=== PATIENT | male | born 1960 | race Caucasian/White ===

== ENCOUNTER 2021-12-31 09:00 | Inpatient (IN) ==
[2021-12-31] MEDS ORDERED: dexAMETHasone**PF** 10 MG/ML VIAL IV ONE (09:24)
[2021-12-31] MEDS ORDERED: ACETAMINOPHEN 1,000 MG/100 ML VIAL IV STA (09:24)
--- NOTE | 2021-12-31 09:34 | Emergency Department Note ---
Impression & Plan Spinal stenosis, lumbar region with neurogenic claudication, Lumbar disc herniation with radiculopathy, Urinary urgency ED Provider Note NAME: EKLSY DELCID AGE: 61 SEX: M ARRIVES VIA: Walk-In INFORMANT: Patient ED PROVIDER(S): Pb Cardenas MD CHIEF COMPLAINT: Sciatica, referred. PLAN: Disposition: Admit MEDICAL DECISION MAKING: The patient is a pleasant 61-year-old gentleman who presents emergency department referred by his orthopedic spine office for evaluation of worsening symptoms due to lumbar stenosis with pain and weakness of his right leg and his report of developing difficulty with urination over the past week. Patient r eports he does have a history of enlarged prostate but reports she has been on medications and has not had issues for years. He reports the pain become so severe that it is difficult to initiate his stream at times. He denies loss of bowel control. He does report weakness of the right leg and is able to walk with crutches but uncomfortably so in with difficulty. He did have an MRI performed at [facility] at the end of November that demonstrated prominent degenerative disc disease along with disc bulges and herniations resulting in spinal and foraminal stenosis along the nerve root. In particular there is moderate to severe right foraminal narrowing with moderate impingement of the ri ght L5 nerve root. He denies any fevers, chills, cough, congestion, GI symptoms. On arrival the patient is in no acute distress, afebrile stable vital signs. On exam the patient has 2+ patellar reflexes bilaterally. There is no clonus. He does have notable weakness with dorsal and plantar flexion of the foot. Positive right straight leg raise. WBC 12.8K, nonspecific. H/H and platelets within normal limits. Chemistry without metabolic acidosis. Electrolytes and LFTs unremarkable. UA without evidence of infection. COVID-19 RNA, PHYLLIS test was negative. Post void bladder scan by RN showed no urinary retention. Appreciate consultation with Dr. Rose, orthopedic spine surgery will admit the patient for further management. Patient and his agree with plan for admission Triage Nursing notes reviewed and agree them. Prior medical records reviewed Vital Signs: reviewed and remarkable for no significant abnormalities Differential diagnosis: Musculoskeletal, disc herniation, fracture, metastatic disease, cord compression, discitis, sciatica, cauda equina, infection, aortic disease, renal colic, gastrointestinal, as well as other pathologies. ER treatment provided: See below. Diagnostics interpreted by me: Cardiac Monitoring: An order for continuous cardiac monitoring was placed and demonstrated normal sinus rhythm, 76 bpm, no ectopy. Laboratory studies: See below Imaging studies: See below Consultation(s): Dr. Rose, orthopedic spine surgery. HPI: The patient is a pleasant 61-year-old gentleman who presents emergency department referred by his orthopedic spine office for evaluation of worsening symptoms due to lumbar stenosis with pain and weakness of his right leg and his report of developing difficulty with urination over the past week. Patient reports he does have a history of enlarged prostate but reports she has been on medications and has not had issues for years. He reports the pain become so s evere that it is difficult to initiate his stream at times. He denies loss of bowel control. He does report weakness of the right leg and is able to walk with crutches but uncomfortably so in with difficulty. He did have an MRI performed at [facility] at the end of November that demonstrated prominent degenerative disc disease along with disc bulges and herniations resulting in spinal and foraminal stenosis along the nerve root. In particular there is moderate to severe right foraminal narrowing with moderate impingement of the right L5 nerve root. He denies any fevers, chills, cough, congestion, GI symptoms. ROS: See above HPI for pertinent positives & negatives. A total of 10 systems reviewed and were otherwise negative. PAST MEDICAL HISTORY:See Below PAST SURGICAL HISTORY:See Below FAMILY HISTORY:See Below SOCIAL HISTORY:See Below HOME MEDICATIONS:See Below ALLERGIES:See Below VITALS:See Below PHYSICAL EXAMINATION: GENERAL: Awake, alert, uncomfortable-appearing, in no distress HENT: Normocephalic, atraumatic. Oropharynx unremarkable. EYES: Normal conjunctiva. Sclera non-icteric. NECK: Supple. No nuchal rigidity. FROM. No JVD. RESPIRATORY: Clear to auscultation. CARDIAC: Regular rate, normal rhythm. Extremities warm and well perfused. Pulses equal. ABDOMEN: Soft, non-distended. No tenderness to palpation. No rebound or guarding. No masses. RECTAL: Deferred. MUSCULOSKELETAL: Chest examination reveals no tenderness. The back is s ymmetrical on inspection without obvious abnormality. There is no CVA tenderness to palpation. No joint edema. 2+ patellar reflexes bilaterally. There is no clonus. He does have notable weakness with dorsal and plantar flexion of the foot. Positive right straight leg raise. LOWER EXTREMITIES: Calves are equal size bilaterally and non-tender. No edema. No discoloration. NEURO: Normal sensorium. No additional focal sensory or motor deficits noted. SKIN: No rash or jaundice noted. Pb Cardenas MD Past Med/Surg History Medical History Asthma BPH (benign prostatic hyperplasia) GERD (gastroesophageal reflux disease) HTN (hypertension) Nasal polyp Post-surgical hypothyroidism Surgical History History of appendectomy History of inguinal hernia History of sinus surgery x4 History of thyroidectomy History of tonsillectomy and adenoidectomy Family History Mother , 75 COPD (chronic obstructive pulmonary disease) Coronary heart disease Father Diabetes Heart disease Myocardial infarction Coronary heart disease Social History Smoking Status: Never smoker Hx Alcohol Use: Yes Alcohol Intake Frequency: Monthly or Less Hx Substance Use: No Preferred Language: Turkish marital status: Current Living Situation: Spouse current occupational status: employed current occupation: [employer] Feels Safe at Home: Yes Allergies Allergies Allergy/AdvReac Type Severity Reaction Status Date / Time doxycycline Allergy Severe Hives Verified 12/31/21 15:55 Penicillins Allergy Severe RASH Verified 12/31/21 15:55 Quinolones Allergy Severe SWELLING, Verified 12/31/21 15:55 RASH Home Meds Home Medications Medication Instructions Recorded Confirmed dupilumab 300 mg/2 mL subcutaneous 300 mg SUBCUT Q14D 12/31/21 12/31/21 pen injector (Dupixent) esomeprazole magnesium 20 mg 20 mg PO DAILY 12/31/21 12/31/21 capsule,delayed release (Nexium 24HR) finasteride 5 mg tablet 5 mg PO DAILY 12/31/21 12/31/21 gabapentin 300 mg capsule 300 mg PO QID 12/31/21 12/31/21 hydrochlorothiazide 25 mg tablet 25 mg PO DAILY 12/31/21 12/31/21 levothyroxine 175 mcg tablet 175 mcg PO DAILY 12/31/21 12/31/21 (Synthroid) mometasone 50 mcg/actuation nasal 2 spray INTRANASAL DAILY 12/31/21 12/31/21 spray mometasone-formoterol HFA 200 2 inh INHALATION BID 12/31/21 12/31/21 mcg-5 mcg/actuation aerosol inhaler (Dulera) Results & Data (ED) Vital Signs Vital Signs - 24 hr 12/31/21 09:07 12/31/21 11:50 Temperature 36.2 C L Temperature Source Temporal Artery Scan Pulse Rate 92 H Pulse Rhythm Regular Pulse Strength Normal Respiratory Rate 20 18 Respiratory Effort / Characteristics Non-Labored Spontaneous Respiratory Depth Normal Normal Respiratory Pattern Regular Blood Pressure 137/89 Blood Pressure Mean 105 Blood Pressure Position Sitting Pulse Oximetry 95 97 Oxygen Delivery Method Room Air Room Air Sepsis Recent Fever Within 48 Hours No Sepsis New/Unexplained Change in Mental Status No Sepsis Action Taken by Nursing No Action Required Laboratory Data Attestation: I reviewed the patient's lab results. Result diagrams: 12/31/21 09:35 12/31/21 09:35 Lab Results 12/31/21 12/31/21 12/31/21 Range/Units 09:35 09:35 09:35 WBC 12.86 H (4.8-10.8) K/uL RBC 5.15 (4.7-6.1) M/uL Hgb 15.1 (14.0-18.0) g/dL Hct 45.1 (42-52) % MCV 87.6 (80-100) fL MCH 29.3 (25-34) pg MCHC 33.5 (32-36) g/dL RDW Std Deviation 48.0 H (36.4-46.3) fL RDW Coeff of Jakob 14.9 H (11.5-14.5) % Plt Count 251 (130-400) K/uL MPV 11.2 H (7.4-10.4) fL Immature Gran % (Auto) 0.9 % Neut % (Auto) 81.7 % Lymph % (Auto) 11.2 % [place] % (Auto) 5.7 % Eos % (Auto) 0.3 % Baso % (Auto) 0.2 % Neut # (Auto) 10.52 H (1.4-6.5) K/uL Lymph # (Auto) 1.44 (1.2-3.4) K/uL [place] # (Auto) 0.73 H (0.11-0.59) K/uL Eos # (Auto) 0.04 (0-0.5) K/uL Baso # (Auto) 0.02 (0-0.2) K/uL Immature Gran # (Auto) 0.11 H (0.00-0.02) K/uL PT 9.5 (9.0-12.0) Seconds INR 0.9 (0.9-1.1) Sodium (136-145) mmol/L Potassium (3.5-5.1) mmol/L Chloride (98-107) mmol/L Carbon Dioxide (21-32) mmol/L Anion Gap (3-11) BUN (6-23) mg/dl Creatinine (0.6-1.4) mg/dl Est Cr Clr Drug Dosing ml/min Est GFR ( Amer) ml/min Est GFR (Non-Af Amer) ml/min BUN/Creatinine Ratio (10-20) Glucose (70-99(Fasting)) mg/dl Calcium (8.5-10.1) mg/dl Total Bilirubin (0.2-1.0) mg/dl AST (13-39) U/L ALT (7-52) U/L Alkaline Phosphatase (34-104) U/L Total Protein (6.0-8.3) gm/dl Albumin (3.4-5.0) gm/dl Globulin (2.5-4.0) gm/dl Albumin/Globulin Ratio (0.9-2) Urine Color Urine Appearance (Clear) Urine pH (4.5-7.5) Ur Specific [place] (1.000-1.030) Urine Protein (Negative) Urine Glucose (UA) (Negative) Urine Ketones (Negative) Urine Blood (Negative) Urine Nitrite (Negative) Urine Bilirubin (Negative) Urine Urobilinogen (Negative) Ur Leukocyte Esterase (Negative) SARS-CoV-2, RNA, NAAT (NEGATIVE) Blood Type O Positive Antibody Screen POSITIVE A 12/31/21 12/31/21 12/31/21 Range/Units 09:35 09:40 09:53 WBC (4.8-10.8) K/uL RBC (4.7-6.1) M/uL Hgb (14.0-18.0) g/dL Hct (42-52) % MCV (80-100) fL MCH (25-34) pg MCHC (32-36) g/dL RDW Std Deviation (36.4-46.3) fL RDW Coeff of Jakob (11.5-14.5) % Plt Count (130-400) K/uL MPV (7.4-10.4) fL Immature Gran % (Auto) % Neut % (Auto) % Lymph % (Auto) % [place] % (Auto) % Eos % (Auto) % Baso % (Auto) % Neut # (Auto) (1.4-6.5) K/uL Lymph # (Auto) (1.2-3.4) K/uL [place] # (Auto) (0.11-0.59) K/uL Eos # (Auto) (0-0.5) K/uL Baso # (Auto) (0-0.2) K/uL Immature Gran # (Auto) (0.00-0.02) K/uL PT (9.0-12.0) Seconds INR (0.9-1.1) Sodium 138 (136-145) mmol/L Potassium 3.7 (3.5-5.1) mmol/L Chloride 104 (98-107) mmol/L Carbon Dioxide 25 (21-32) mmol/L Anion Gap 9 (3-11) BUN 32 H (6-23) mg/dl Creatinine 0.80 (0.6-1.4) mg/dl Est Cr Clr Drug Dosing 93.0 ml/min Est GFR ( Amer) 113.3 ml/min Est GFR (Non-Af Amer) 97.8 ml/min BUN/Creatinine Ratio 40.0 H (10-20) Glucose 95 (70-99(Fasting)) mg/dl Calcium 9.5 (8.5-10.1) mg/dl Total Bilirubin 0.8 (0.2-1.0) mg/dl AST 17 (13-39) U/L ALT 34 (7-52) U/L Alkaline Phosphatase 73 (34-104) U/L Total Protein 6.5 (6.0-8.3) gm/dl Albumin 4.2 (3.4-5.0) gm/dl Globulin 2.3 L (2.5-4.0) gm/dl Albumin/Globulin Ratio 1.8 (0.9-2) Urine Color Yellow Urine Appearance Clear (Clear) Urine pH 6.5 (4.5-7.5) Ur Specific [place] 1.012 (1.000-1.030) Urine Protein Negative (Negative) Urine Glucose (UA) Negative (Negative) Urine Ketones Negative (Negative) Urine Blood Negative (Negative) Urine Nitrite Negative (Negative) Urine Bilirubin Negative (Negative) Urine Urobilinogen Negative (Negative) Ur Leukocyte Esterase Negative (Negative) SARS-CoV-2, RNA, NAAT NEGATIVE (NEGATIVE) Blood Type Antibody Screen Administered Medications Sodium Chloride (Nss 1000ml) 1,000 mls @ 125 mls/hr IV .Q8H [facility] Stop: 01/30/22 09:29 Last Admin: 12/31/21 10:04 Dose: 125 mls/hr Documented by: [id number] Discontinued Medications Dexamethasone Sodium Phosphate (DexamethasonePf 10 Mg/Ml Vial) 10 mg IV NOW ONE Stop: 12/31/21 09:25 Last Admin: 12/31/21 10:04 Dose: 10 mg Documented by: [id number] Acetaminophen (Ofirmev) 1,000 mg in 100 mls @ 400 mls/hr IV NOW STA Stop: 12/31/21 09:38 Last Infusion: 12/31/21 10:20 Dose: 0 mls/hr Documented by: [id number] Admin: 12/31/21 10:04 Dose: 400 mls/hr Documented by: [id number] Discharge Plan Visit Data Chief Complaint: Back Injury/Pain Stated Complaint: RT LEG PAIN, UNABLE TO VOID ED Provider: Pb Cardenas Discharge Problem: Spinal stenosis, lumbar region with neurogenic claudication, Lumbar disc herniation with radiculopathy, Urinary urgency Patient Disposition: Admitted As Inpatient Discharge Instructions Interventions: ED Discharge Assessment Last Done: 12/31/21 15:52
[2021-12-31 09:49] LABS: Basophils # (auto) 0.02 K/uL (0-0.2); Basophils % (auto) 0.2 %; Eosinophils # (auto) 0.04 K/uL (0-0.5); Eosinophils % (auto) 0.3 %; Hematocrit (blood only) 45.1 % (42-52); Hemoglobin 15.1 g/dL (14.0-18.0); Immature Granulocytes # (auto) 0.11 K/uL (0.00-0.02); Immature Granulocytes % (auto) 0.9 %; Lymphocytes # (auto) 1.44 K/uL (1.2-3.4); Lymphocytes % (auto) 11.2 %; Mean Corpuscular Hemoglobin 29.3 pg (25-34); Mean Corpuscular Hgb Conc 33.5 g/dL (32-36); Mean Corpuscular Volume 87.6 fL (80-100); Mean Platelet Volume 11.2 fL (7.4-10.4); Monocytes # (auto) 0.73 K/uL (0.11-0.59); Monocytes % (auto) 5.7 %; Neutrophils # (auto) 10.52 K/uL (1.4-6.5); Neutrophils % (auto) 81.7 %; Platelet Count 251 K/uL (130-400); RDW Coefficient of Variation 14.9 % (11.5-14.5); Red Blood Count 5.15 M/uL (4.7-6.1); White Blood Count 12.86 K/uL (4.8-10.8)
[2021-12-31 09:54] LABS: Appearance Urine Clear (Clear); Bilirubin Urine Negative (Negative); Blood Urine Negative (Negative); Color Urine Yellow; Glucose Urine UA Negative (Negative); Ketones Urine Negative (Negative); Leukocyte Esterase Urine Negative (Negative); Nitrite Urine Negative (Negative); Protein Urine Negative (Negative); Specific Gravity Urine 1.012 (1.000-1.030); Urobilinogen Urine Negative (Negative); pH Urine 6.5 (4.5-7.5)
[2021-12-31] MEDS: SODIUM CHLORIDE 0.9% 1000ML 1,000 ML IV SCH ×2 (10:04→16:57)
[2021-12-31 10:06] LABS: INR 0.9 (0.9-1.1); Prothrombin Time 9.5 Seconds (9.0-12.0)
[2021-12-31 10:11] LABS: Albumin Globulin Ratio 1.8 (0.9-2); Albumin Level 4.2 gm/dl (3.4-5.0); Bilirubin,Total 0.8 mg/dl (0.2-1.0); Calcium 9.5 mg/dl (8.5-10.1); Est GFR (African American) 113.3 ml/min; Est GFR (Non-African American) 97.8 ml/min; Globulin 2.3 gm/dl (2.5-4.0); Potassium 3.7 mmol/L (3.5-5.1); Total Protein 6.5 gm/dl (6.0-8.3)
--- NOTE | 2021-12-31 14:19 | Consultation ---
Date of Consultation December 31, 2021 Assessment & Plan (1) Spinal stenosis, lumbar region with neurogenic claudication: (2) HTN (hypertension): (3) Post-surgical hypothyroidism: (4) Asthma: (5) BPH (benign prostatic hyperplasia): (6) GERD (gastroesophageal reflux disease): This is a 61-year-old male who has significant past medical history of HTN, postsurgical hypothyroidism, asthma, BPH, GERD, nasal polyps who presents to ED secondary to worsening back, leg pain and difficulty with urination. Lumbar Spinal Stenosis with neurogenic claudication will be admitted to med/surg under orthopedic spine service Plan for lumbar procedure tomorrow, NPO after midnight pain management per orthopedics obtain ecg and cxr for pre op clearance meds, history, allergies reviewed with patient and at bedside HTN will hold HCTZ until re assessed in a.m./post operatively BP 128/88 currently Post surgical hypothyroidism continue synthyroid BPH continue finasteride Gerd continue nexium, controlled DVT ppx: SCD/TEDS, per primary PCP: Rufus Kirkland FULL CODE Dispo: med/surg Pt was seen and examined in collaboration with Dr. Patterson, please see addendum Thank you for this consultation. We will follow the patient with you during their hospital stay. You can reach a member of the [facility] Hospitalist Team 31/05 via hospitalist role on tiger text Supervising Physician Co-Signing Physician Notes Attending addendum: The patient was seen and examined in the emergency room in presence of the He has been complaining of back pain which has been getting worse with radiculopathy and involvement of his voiding since August of last year He denies any other symptoms and he has been otherwise active On examination Lying in bed comfortably Hemodynamically stable Chest-clear to auscultate bilaterally Heart-S1-S2, regular, no murmur appreciated Abdomen-benign Extremities-negative for any edema [employer]-alert, awake and oriented. Right lower extremity weakness with impaired sensation in the foot and lower leg His admission labs, EKG and imaging studies reviewed Has lumbar pain with radiculopathy Appreciate Ortho input and possible surgery tomorrow There is no contraindication for proposed surgery Agree with assessment and plan as outlined above by Alanis Patterson History of Present Illness Requesting Physician: Dr. Rose Reason for Consultation: Medical Management Attending Physician: Dr. Rose History of Present Illness This is a 61-year-old male who has significant past medical history of HTN, postsurgical hypothyroidism, asthma, BPH, GERD, nasal polyps who presents to ED secondary to worsening back, leg pain and difficulty with urination x 2-3 weeks. He states symptoms worsen over the past 2 to 3 weeks. Specifically with urination the pain becomes so intense that he is unable to relax his bladder and full urinate. He has been having difficulty walking. He is an established patient with Dr. Rose and was urged to come to ED for further evaluation and admission to orthopedic spine service. Of significance he did have a MRI at [facility] in [place] at end of November which demonstrated prominent degenerative disc disease along with disc bulges and herniations resulting in spinal and foraminal stenosis along the nerve root. In particular there is moderate to severe right foraminal narrowing and moderate impingement of the right L5 nerve root. Otherwise he has no acute concerns. He denies any recent illness. He denies any fever, chills, sweats, lightheadedness, dizziness, chest pain, shortness breath, cough, nausea, vomiting, abdominal pain, fecal incontinence, melena or hematochezia. At baseline he is able to ambulate 1 flight of stairs without getting chest pain or shortness of breath. He denies any prior history of CAD. He did have a cardiac cath approximately 7 years ago which he reports was unremarkable. Allergies Allergy/AdvReac Type Severity Reaction Status Date / Time doxycycline Allergy Severe Hives Verified 12/31/21 14:08 Penicillins Allergy Severe RASH Unverified 12/13/09 04:06 Quinolones Allergy Severe SWELLING, Unverified 12/13/09 04:06 RASH Home Medications Medication Instructions Recorded Confirmed Type dupilumab 300 mg/2 mL subcutaneous 300 mg SUBCUT Q14D 12/31/21 12/31/21 History pen injector (Dupixent) esomeprazole magnesium 20 mg 20 mg PO DAILY 12/31/21 12/31/21 History capsule,delayed release (Nexium 24HR) finasteride 5 mg tablet 5 mg PO DAILY 12/31/21 12/31/21 History gabapentin 300 mg capsule 300 mg PO QID 12/31/21 12/31/21 History hydrochlorothiazide 25 mg tablet 25 mg PO DAILY 12/31/21 12/31/21 History levothyroxine 175 mcg tablet 175 mcg PO DAILY 12/31/21 12/31/21 History (Synthroid) mometasone 50 mcg/actuation nasal 2 spray INTRANASAL DAILY 12/31/21 12/31/21 History spray mometasone-formoterol HFA 200 2 inh INHALATION DAILY 12/31/21 12/31/21 History mcg-5 mcg/actuation aerosol inhaler (Dulera) Patient History Medical History Asthma BPH (benign prostatic hyperplasia) GERD (gastroesophageal reflux disease) HTN (hypertension) Nasal polyp Post-surgical hypothyroidism Surgical History History of appendectomy History of inguinal hernia History of sinus surgery x4 History of thyroidectomy History of tonsillectomy and adenoidectomy Family History Mother , 75 COPD (chronic obstructive pulmonary disease) Coronary heart disease Father Diabetes Heart disease Myocardial infarction Coronary heart disease Social History (Updated 12/31/21 @ 14:20 by Alanis Malone PA-C) Smoking Status: Never smoker Hx Alcohol Use: Yes Alcohol Intake Frequency: Monthly or Less Hx Substance Use: No Preferred Language: Malay marital status: Current Living Situation: Spouse current occupational status: employed current occupation: [employer] Feels Safe at Home: Yes Review of Systems Review of Systems: All systems reviewed & are unremarkable except as noted in HPI & below Physical Exam Physical Exam: Constitutional: WD/WN, vitals as above, NAD, sitting up in bed, pleasant, conversing easily Head: Normocephalic, Atraumatic Eyes: PERRL, conjunctivae normal, anicteric sclerae ENMT: external ear and nose normal, oropharynx normal Neck: trachea midline, no thyromegaly normal visual inspection Respiratory: normal respiratory effort, lungs clear to auscultation, no wheeze, rales, rhonchi. Normal insp/exp effort, no accessory muscle use Cardiovascular: RRR, no murmur, no edema Vessels: no JVD or carotid bruit Chest: normal inspection of chest Abdomen: normal bowel sounds, soft, nontender, no hepatosplenomegaly Musculoskeletal: no cyanosis or clubbing, AROM x 4, no clonus, + R straight leg raise, 4/5 weakness to dorsal/plantar flexion of foot Skin: no rashes, warm and dry normal turgor Neurologic: PERRL, EOMI, accommodation nl, no face palsy, no dysarthria CN's II-XI intact bilaterally and moves all extremities Psychiatric: A+Ox3, euthymic affect Lymphatic: no cervical or axillary lymphadenopathy : deferred Results & Data ([facility]) Vital Signs (Past 12 Hours) Vital Signs Temp Pulse Pulse Resp BP BP Pulse Ox 12/31/21 14:00 18 94 12/31/21 12:57 82 16 128/88 93 12/31/21 11:50 18 97 12/31/21 09:07 36.2 C L 92 H 20 137/89 95 Laboratory Results Short CBC 12/31/21 Range/Units 09:35 WBC 12.86 H (4.8-10.8) K/uL Hgb 15.1 (14.0-18.0) g/dL Hct 45.1 (42-52) % Plt Count 251 (130-400) K/uL BMP 12/31/21 09:35 Sodium 138 Potassium 3.7 Chloride 104 Carbon Dioxide 25 BUN 32 H Creatinine 0.80 Glucose 95 Calcium 9.5 Liver Function 12/31/21 Range/Units 09:35 Total Bilirubin 0.8 (0.2-1.0) mg/dl AST 17 (13-39) U/L ALT 34 (7-52) U/L Alkaline Phosphatase 73 (34-104) U/L Albumin 4.2 (3.4-5.0) gm/dl Urine 12/31/21 Range/Units 09:40 Urine Color Yellow Urine Appearance Clear (Clear) Urine pH 6.5 (4.5-7.5) Ur Specific [place] 1.012 (1.000-1.030) Urine Protein Negative (Negative) Urine Glucose (UA) Negative (Negative) Medications Administered Medication List Sodium Chloride (Nss 1000ml) 1,000 mls @ 125 mls/hr IV .Q8H [facility] Stop: 01/30/22 09:29 Last Admin: 12/31/21 10:04 Dose: 125 mls/hr Documented by: [id number] Discontinued Medications Dexamethasone Sodium Phosphate (DexamethasonePf 10 Mg/Ml Vial) 10 mg IV NOW ONE Stop: 12/31/21 09:25 Last Admin: 12/31/21 10:04 Dose: 10 mg Documented by: [id number] Acetaminophen (Ofirmev) 1,000 mg in 100 mls @ 400 mls/hr IV NOW STA Stop: 12/31/21 09:38 Last Infusion: 12/31/21 10:20 Dose: 0 mls/hr Documented by: [id number] Admin: 12/31/21 10:04 Dose: 400 mls/hr Documented by: [id number]
--- NOTE | 2021-12-31 14:36 | Anesthesiology Consultation ---
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 History Surgery Operation Date: 01/01/22 07:00 Proposed Procedures p Lumbar decompression Fusion L4-L5 & L5-S1 - Antonio Rose DO Height/Weight Height: 5 ft 7 in Weight: 73.1 kg Allergies Allergy/AdvReac Type Severity Reaction Status Date / Time doxycycline Allergy Severe Hives Verified 12/31/21 14:08 Penicillins Allergy Severe RASH Unverified 12/13/09 04:06 Quinolones Allergy Severe SWELLING, Unverified 12/13/09 04:06 RASH Medications Home Medications Medication Instructions Recorded Confirmed Last Taken dupilumab 300 mg/2 mL subcutaneous 300 mg SUBCUT Q14D 12/31/21 12/31/21 Unknown pen injector (Dupixent) esomeprazole magnesium 20 mg 20 mg PO DAILY 12/31/21 12/31/21 Unknown capsule,delayed release (Nexium 24HR) finasteride 5 mg tablet 5 mg PO DAILY 12/31/21 12/31/21 Unknown gabapentin 300 mg capsule 300 mg PO QID 12/31/21 12/31/21 Unknown hydrochlorothiazide 25 mg tablet 25 mg PO DAILY 12/31/21 12/31/21 Unknown levothyroxine 175 mcg tablet 175 mcg PO DAILY 12/31/21 12/31/21 Unknown (Synthroid) mometasone 50 mcg/actuation nasal 2 spray INTRANASAL DAILY 12/31/21 12/31/21 Unknown spray mometasone-formoterol HFA 200 2 inh INHALATION DAILY 12/31/21 12/31/21 Unknown mcg-5 mcg/actuation aerosol inhaler (Dulera) Active Medications Generic Name Dose Route Start Last Admin Trade Name Freq PRN Reason Stop Dose Admin Sodium Chloride 1,000 mls @ 125 mls/hr 12/31/21 09:30 12/31/21 10:04 Nss 1000ml IV 01/30/22 09:29 125 mls/hr .Q8H AVERY Administration Past Medical History Medical History Asthma BPH (benign prostatic hyperplasia) GERD (gastroesophageal reflux disease) HTN (hypertension) Nasal polyp Post-surgical hypothyroidism Past Family History Family History Mother , 75 COPD (chronic obstructive pulmonary disease) Coronary heart disease Father Diabetes Heart disease Myocardial infarction Coronary heart disease Past Surgical History Surgical History History of appendectomy History of inguinal hernia History of sinus surgery x4 History of thyroidectomy History of tonsillectomy and adenoidectomy Social History Smoking Status: Never smoker Hx Alcohol Use: Yes Hx Substance Use: No Physical Exam Vital Signs Last Vital Signs Temp 97.2 F L 12/31/21 09:07 Pulse 82 12/31/21 12:57 Resp 18 12/31/21 14:00 BP 128/88 12/31/21 12:57 Pulse Ox 94 12/31/21 14:00 Testing Laboratory Results 12/31/21 09:35 12/31/21 09:35 PT 9.5 Seconds (9.0-12.0) 12/31/21 09:35 INR 0.9 (0.9-1.1) 12/31/21 09:35 Urine Color Yellow 12/31/21 09:40 Urine Appearance Clear (Clear) 12/31/21 09:40 Urine pH 6.5 (4.5-7.5) 12/31/21 09:40 Ur Specific [place] 1.012 (1.000-1.030) 12/31/21 09:40 Urine Protein Negative (Negative) 12/31/21 09:40 Urine Glucose (UA) Negative (Negative) 12/31/21 09:40 Urine Ketones Negative (Negative) 12/31/21 09:40 Urine Nitrite Negative (Negative) 12/31/21 09:40 Ur Leukocyte Esterase Negative (Negative) 12/31/21 09:40 Blood Type O Positive 12/31/21 09:35 Antibody Screen POSITIVE A 12/31/21 09:35 Electrocardiogram Date: 12/31/21 Normal sinus rhythm, rate 75 bpm Possible Left atrial enlargement Possible Lateral infarct , age undetermined Abnormal ECG No previous ECGs available
--- NOTE | 2021-12-31 14:46 | History & Physical Report ---
Date of Service December 31, 2021 Assessment & Plan (1) Lumbar disc herniation with radiculopathy: Plan: Assessment lumbar disc herniation L4-L5 with spondylolisthesis L5-S1 and bilateral neuroforaminal stenosis. Plan at length discussion today with the patient and his reviewing his MRI findings and clinical presentation. In order to adequately address his neural compression he would require a lumbar decompression and fusion L4-L5 L5-S1. This allowed us to address the instability and spinal listhesis L5-S1 safely addressed the neuroforaminal stenosis as well as the massive disc herniation at L4-L5. Risk benefits pros cons of turns were outlined in detail. This time the patient will be made n.p.o. after midnight obtain medical evaluation and plan for surgery as soon as possible in light of his progressive strength deficit. History of Present Illness Chief Complaint: Right leg pain and weakness Primary Care Provider: Rufus Kirkland MD This is a 61-year-old male that presents with severe right leg radiculopathy. He states symptoms have been present for several months with a significant decline over the past few weeks. He describes pain in the right buttock posterior thigh extending into the dorsum of his foot. He is now relegated to using crutches to ambulate as he is unable to weight-bear secondary to weakness. He has tried epidural injections without relief. Left lower extremities relatively asymptomatic. He denies any specific trauma fall or event. Allergies Allergy/AdvReac Type Severity Reaction Status Date / Time doxycycline Allergy Severe Hives Verified 12/31/21 14:08 Penicillins Allergy Severe RASH Unverified 12/13/09 04:06 Quinolones Allergy Severe SWELLING, Unverified 12/13/09 04:06 RASH Home Medications Medication Instructions Recorded Confirmed Type dupilumab 300 mg/2 mL subcutaneous 300 mg SUBCUT Q14D 12/31/21 12/31/21 History pen injector (DupixVisibleGains) esomeprazole magnesium 20 mg 20 mg PO DAILY 12/31/21 12/31/21 History capsule,delayed release (Nexium 24HR) finasteride 5 mg tablet 5 mg PO DAILY 12/31/21 12/31/21 History gabapentin 300 mg capsule 300 mg PO QID 12/31/21 12/31/21 History hydrochlorothiazide 25 mg tablet 25 mg PO DAILY 12/31/21 12/31/21 History levothyroxine 175 mcg tablet 175 mcg PO DAILY 12/31/21 12/31/21 History (Synthroid) mometasone 50 mcg/actuation nasal 2 spray INTRANASAL DAILY 12/31/21 12/31/21 History spray mometasone-formoterol HFA 200 2 inh INHALATION DAILY 12/31/21 12/31/21 History mcg-5 mcg/actuation aerosol inhaler (Dulera) Past Med/Surg History Medical History Asthma BPH (benign prostatic hyperplasia) GERD (gastroesophageal reflux disease) HTN (hypertension) Nasal polyp Post-surgical hypothyroidism Surgical History History of appendectomy History of inguinal hernia History of sinus surgery x4 History of thyroidectomy History of tonsillectomy and adenoidectomy Family History Mother , 75 COPD (chronic obstructive pulmonary disease) Coronary heart disease Father Diabetes Heart disease Myocardial infarction Coronary heart disease Social History (Updated 12/31/21 @ 14:20 by Alanis Malone PA-C) Smoking Status: Never smoker Hx Alcohol Use: Yes Alcohol Intake Frequency: Monthly or Less Hx Substance Use: No Preferred Language: Mongolian marital status: Current Living Situation: Spouse current occupational status: employed current occupation: [employer] Feels Safe at Home: Yes Physical Exam Physical Exam: On exam he is in obvious distress. He exhibits positive tension signs with straight leg raising on the right. He has a 3+/5 right dorsiflexion extensor pollicis longus as well as a 4-45 right plantar flexion. Is a 5 or 5 in the left. There is marked deficits to cold and light touch to the right lower extremity compared to left. Results & Data ([facility]) Vital Signs (Past 12 Hours) Vital Signs Temp Pulse Pulse Resp BP BP Pulse Ox 12/31/21 14:00 18 94 12/31/21 12:57 82 16 128/88 93 12/31/21 11:50 18 97 12/31/21 09:07 36.2 C L 92 H 20 137/89 95 Code Status & VTE Plan VTE Prophylaxis Plan VTE Prophylaxis will be ordered: Yes
--- NOTE | 2021-12-31 16:20 | XRay Report ---
TWO VIEW CHEST CLINICAL HISTORY: Preoperative examination. Reported history of asthma. FINDINGS: PA and lateral chest radiographs are compared to study dated 12/11/2013. The cardiomediastina l silhouette is unremarkable. There is bibasilar scarring/atelectasis. The lungs and pleural spaces a re otherwise clear. There is no pneumothorax. The skeletal structures appear osteopenic. Degenerative changes noted throughout the thoracic spine. The bony thorax appears intact. IMPRESSION: No active disease in the chest. ACT 112: Negative or not required by law. Electronically signed by: Juliocesar Arthur M.D. 12/31/2021 4:19 PM
[2021-12-31] MEDS ORDERED: METOCLOPRAMIDE HCL INJ 5 MG/ML 2 ML VIAL IV PRN (16:22)
[2021-12-31] MEDS ORDERED: MAGNESIUM HYDROXIDE SUSP 30 ML UDC PO PRN (16:22)
[2021-12-31] MEDS ORDERED: hydrOXYzine HCl 25 MG TAB PO PRN (16:22)
[2021-12-31] MEDS ORDERED: ONDANSETRON INJ 2 MG/ML 2 ML VIAL IV PRN (16:22)
[2021-12-31] MEDS ORDERED: NALOXONE HCL 0.4 MG/1 ML VIAL/CARP IV PRN (16:22)
[2021-12-31] MEDS ORDERED: LORazepam 0.5 MG TAB PO PRN (16:22)
[2021-12-31] MEDS ORDERED: PROMETHAZINE HCL 12.5 MG in SODIUM CHLORIDE 0.9% 50 ML IV PRN (16:22)
[2021-12-31] MEDS ORDERED: ONDANSETRON 4 MG OD TAB PO PRN (16:22)
[2021-12-31] MEDS ORDERED: LORazepam 2 MG/1 ML VIAL IV PRN (16:22)
[2021-12-31] MEDS ORDERED: ACETAMINOPHEN 1,000 MG/100 ML VIAL IV PRN (16:22)
[2021-12-31] MEDS ORDERED: ACETAMINOPHEN 500 MG TAB PO PRN (16:22)
[2021-12-31] MEDS: LACTATED RINGER'S 1,000 ML IV SCH (16:57)
--- NOTE | 2021-12-31 17:41 | Electrocardiogram Report ---
Test Reason : Blood Pressure : / mmHG Vent. Rate : 075 BPM Atrial Rate : 075 BPM P-R Int : 180 ms QRS Dur : 098 ms QT Int : 386 ms P-R-T Axes : 039 -08 035 degrees QTc Int : 431 ms Normal sinus rhythm Possible Left atrial enlargement Possible Lateral infarct , age undetermined Abnormal ECG No previous ECGs available Confirmed by Gabriel Delgadillo ([id number]) on 12/31/2021 5:40:40 PM Referred By: Antonio Rose Confirmed By:Lopez Delgadillo
[2021-12-31] MEDS: GABAPENTIN 300 MG CAP PO SCH ×2 (18:20→21:19)
[2021-12-31] MEDS: oxyCODONE HCL IR 5 MG TAB (IMMEDIATE RELEASE) PO PRN (21:18)
[2022-01-01] MEDS: traMADol HCL 50 MG TABLET PO PRN ×2 (01:27→07:38)
[2022-01-01] MEDS: LACTATED RINGER'S 1,000 ML IV SCH ×3 (01:57→18:33)
[2022-01-01] MEDS ORDERED: CLINDAMYCIN 600 MG/54 ML BAG IV SCH (06:00)
[2022-01-01] MEDS ORDERED: CLINDAMYCIN 600 MG in DEXTROSE 5% 50 ML IV SCH (06:00)
[2022-01-01] MEDS: LEVOTHYROXINE SODIUM 175 MCG TABLET PO SCH (06:10)
[2022-01-01] MEDS: oxyCODONE HCL IR 5 MG TAB (IMMEDIATE RELEASE) PO PRN (06:10)
[2022-01-01] MEDS: GABAPENTIN 300 MG CAP PO SCH ×4 (07:38→19:52)
[2022-01-01] MEDS: FLUTICASONE/VILANTEROL 200/25MCG 14 PUFFS/INHALER INH SCH (07:38)
[2022-01-01] MEDS: FINASTERIDE 5 MG TAB PO SCH (07:38)
[2022-01-01] MEDS: FLUTICASONE PROPIONATE NA SPR 16 GM BTL NAE SCH (07:38)
[2022-01-01] MEDS: PANTOprazole 40 MG TAB PO SCH (07:38)
--- NOTE | 2022-01-01 07:43 | History & Physical Bridge Note ---
Date of Service January 01, 2022 History & Physical Bridge Note I have examined the patient, reviewed the History & Physical and in the interval since the performance of the History & Physical I have noted the following changes of clinical significance: Patient continues to demonstrate significant deficit of 3+/5 right dorsiflexion extensor pollicis longus with a 4-/5 plantar flexion. Is been progressive and avoid permanent neurologic damage and recommending emergent decompression fusion L4-5 L5-S1.
[2022-01-01] MEDS ORDERED: EPINEPHrine INJ 1 MG/ML AMP ONE ×2 (07:58→07:59)
[2022-01-01] MEDS ORDERED: BUPIVACAINE 0.5 % 5 MG/1 ML MPF 30ML VIAL ONE (07:59)
[2022-01-01] MEDS ORDERED: fentaNYL citrate 100 MCG/2 ML VIAL ONE (08:08)
[2022-01-01] MEDS ORDERED: MIDAZOLAM HCL 1 MG/ML 2ML VIAL ONE (08:08)
[2022-01-01] MEDS ORDERED: LABETALOL HCL IV 5 MG/ML 20ML IV PRN (08:19)
[2022-01-01] MEDS ORDERED: ONDANSETRON INJ 2 MG/ML 2 ML VIAL IV PRN ×2 (08:19→11:32)
[2022-01-01] MEDS ORDERED: PHENYLEPHRINE 100MCG/ML 5ML SYR IV PRN (08:19)
[2022-01-01] MEDS ORDERED: ATROPINE SULFATE 0.1 MG/ML 10ML SYR IV PRN (08:19)
[2022-01-01] MEDS ORDERED: ePHEDrine sulfate 50 MG/ML AMP IV PRN (08:19)
[2022-01-01] MEDS ORDERED: HYDROmorphone INJ 1 MG/ML SYRINGE IV PRN ×2 (08:19→11:32)
[2022-01-01] MEDS ORDERED: fentaNYL citrate 100 MCG/2 ML VIAL IV PRN (08:19)
[2022-01-01] MEDS ORDERED: ONDANSETRON INJ 2 MG/ML 2 ML VIAL ONE (08:39)
[2022-01-01] MEDS ORDERED: PROPOFOL IV EMULSION 10 MG/ML 20 ML VIAL IV ONE ×2 (08:39→09:21)
[2022-01-01] MEDS ORDERED: LIDOCAINE 2% 2 ML VIAL/AMP(20MG/ML) INFIL ONE (08:39)
[2022-01-01] MEDS ORDERED: DEXAMETHASONE SOD INJ 4 MG/ML VIAL ONE (08:39)
[2022-01-01] MEDS ORDERED: HYDROmorphone INJ 2 MG/ML SYR/VIAL ONE (08:40)
[2022-01-01] MEDS ORDERED: FLOSEAL HEMOSTATIC MATRIX 10ML TOP ONE (09:05)
[2022-01-01] MEDS ORDERED: NEOSTIGMINE METHYLSULFATE 1 MG/ML 10ML VIAL ONE (09:21)
[2022-01-01] MEDS ORDERED: GLYCOPYRROLATE 0.2 MG/ML VIAL ONE (09:21)
--- NOTE | 2022-01-01 10:20 | Operative Report ---
Post Operative Report Pre & Post Diagnosis Operation Date: 01/01/22 07:00 Pre-Op Diagnosis: Lumbar disc herniation L4-5 with spondylolisthesis L5-S1 Post-Op Diagnosis: Same I identified the patient and participated in the time-out.: Yes Procedure Operation Date: 01/01/22 07:00 Actual Procedures #1 lumbar decompression with bilateral medial facetectomies and foraminotomies L3-L4, L4-5 and L5-S1. #2 posterior spinal fusion L4-L5 L5-S1. #3 placement posterior instrumentation L4-L5 L5-S1. #4 interbody fusion L4-L5 L5-S1. #5 placement of titanium cage 12 x 26 mm at L4-L5 and 12 x 26 mm at L5-S1. #6 placement locally harvested morselized autograft in the posterior lateral gutters. #7 placement I factor combined with V toss in the interbody space and posterior lateral gutters. Surgeon Antonio Rose, Marketing Recruiter Katty Allen Estimated Blood Loss 200 Findings Consistent with Post-Op Diagnosis Specimens None Indications This is a 61-year-old male that presents with significant decline in status over the past several days. He does have a known spondylolisthesis and disc herniation L4-5 on the right and has been managed for several months but over the past few days at the onset of significant weakness and inability to ambulate and continued severe radiculopathy involving the right lower extremity. Subsequently he is here for emergent decompression fusion to hopefully halt the progression of nerve damage and strength deficit. Description of Procedure Patient was met with identified informed consent obtained. Patient was then taken to the operative suite underwent a patient placed in a prone position the [place] table top To frame. All bony prominences well-padded eyes inspected to ensure no external pressure placed upon the. This point lumbar spine was prepped and draped in a sterile fashion. Sharp dissection with the assistance of Bovie cautery was performed down to and exposing the lamina and transverse processes of L4-L5 and sacral ala bilaterally. Obvious bilateral pars defect was noted at L5 bilaterally. A complete laminectomy of L5 L4 partial laminectomy of L3 was performed with a medial facetectomies and foraminotomies bilaterally addressing severe stenosis particular along the right lateral recess at 4 5. The severe neuroforaminal disease L5 1 bilaterally. There is evidence of an acute disc herniation at L5-S1 on the right as well. After complete decompression pedicle screws were placed in L4-L5 and S1 levels bilaterally with assistance of fluoroscopy appropriate sized heath placed. By way of a transforaminal approach on right a complete discectomy of L5-S1 was performed endplates curetted to subcortical any bone and a 12 x 26 mm titanium cage filled I factor tapped in position. Then proceeded L4-L5 and again by way of a transforaminal portion right complete discectomy performed endplates curetted to subcortically bone and a 12 x 26 mm titanium cage filled I factor tapped in position. The rods were then compressed locked in 5 position bilaterally. Transverse processes of L4-5 and the sacral ala burred to subcortically bone. I factor combined with V toss and locally harvested morselized autograft was placed in the posterior gutters. 15 round KG drain inserted. The incision was then closed with 1 Vicryl the fascia 2-0 Vicryl subcutaneously and 4 Monocryl for final skin closure. Steri-Strip Steri-Strips placed. Patient will continue PACU stable condition. Lastly Katty Allen was present at the entire procedure on the patient positioning complex portion of the surgery and fascial closure. I attest to the content of the Intraoperative Record and any orders documented therein. Any exceptions are noted below.
[2022-01-01] MEDS ORDERED: oxyCODONE HCL IR 5 MG TAB (IMMEDIATE RELEASE) PO PRN (11:32)
[2022-01-01] MEDS ORDERED: PROMETHAZINE HCL 12.5 MG in SODIUM CHLORIDE 0.9% 50 ML IV PRN (11:32)
[2022-01-01] MEDS ORDERED: LORazepam 0.5 MG TAB PO PRN (11:32)
[2022-01-01] MEDS ORDERED: HYDROmorphone INJ 0.5 MG/0.5 ML SYR IV PRN (11:32)
[2022-01-01] MEDS ORDERED: ACETAMINOPHEN 1,000 MG/100 ML VIAL IV PRN (11:32)
[2022-01-01] MEDS ORDERED: ALUMINUM/MAGNESIUM SUSP 30 ML UDC PO PRN (11:32)
[2022-01-01] MEDS ORDERED: MAGNESIUM HYDROXIDE SUSP 30 ML UDC PO PRN (11:32)
[2022-01-01] MEDS ORDERED: ACETAMINOPHEN 500 MG TAB PO PRN (11:32)
[2022-01-01] MEDS ORDERED: SOD PHOSPHATE/SOD BIPHOSPHATE ENEMA 132 ML BTL PR PRN (11:32)
[2022-01-01] MEDS ORDERED: bisacodyL 10 MG SUPP PR PRN (11:32)
[2022-01-01] MEDS ORDERED: DO NOT ADMINISTER PNEUMOCOCCAL VACCINE PRN (11:32)
[2022-01-01] MEDS ORDERED: diphenhydrAMINE Capsule 25 MG CAP PO PRN (11:32)
[2022-01-01] MEDS ORDERED: METOCLOPRAMIDE HCL INJ 5 MG/ML 2 ML VIAL IV PRN (11:32)
[2022-01-01] MEDS ORDERED: hydrOXYzine HCl 25 MG TAB PO PRN (11:32)
[2022-01-01] MEDS ORDERED: DO NOT ADMINISTER FLU VACCINE PRN (11:32)
[2022-01-01] MEDS ORDERED: FAMOTIDINE 20 MG TAB PO PRN (11:32)
[2022-01-01] MEDS ORDERED: ONDANSETRON 4 MG OD TAB PO PRN (11:32)
[2022-01-01] MEDS ORDERED: LORazepam 2 MG/1 ML VIAL IV PRN (11:32)
[2022-01-01] MEDS ORDERED: NALOXONE HCL 0.4 MG/1 ML VIAL/CARP IV PRN (11:32)
--- NOTE | 2022-01-01 11:40 | Fluoroscopy Report ---
INTRAOPERATIVE RADIOGRAPHS CLINICAL HISTORY: Lumbar spinal fusion. Fluoroscopy time: 23 seconds. FINDINGS: 2 spot fluoroscopic views of the lumbar spine are presented. There has been discectomy at L 4-L5 and L5-S1 with laminectomy and posterior fusion at L4-S1. Interpedicular screws are in place. Th e orthopedic hardware appears intact. IMPRESSION: Intraoperative images from L4-S1 spinal fusion as above. Electronically signed by: Juliocesar Arthur M.D. 01/01/2022 11:39 AM
--- NOTE | 2022-01-01 11:46 | Anesthesiology Progress Note ---
Date of Service January 01, 2022 Anesthesia Post Procedure Vital Signs Vital Signs: Temp Pulse Pulse Pulse Resp BP BP 01/01/22 11:36 36.4 C L 63 16 117/75 01/01/22 11:20 77 16 125/78 01/01/22 11:10 36.1 C L 72 16 117/75 01/01/22 11:00 70 11 L 133/87 01/01/22 10:50 73 12 128/78 01/01/22 10:40 77 12 146/84 H 01/01/22 10:31 36 C L 86 12 144/89 H 01/01/22 08:00 36.6 C 81 18 01/01/22 07:38 36.5 C 65 16 01/01/22 00:06 36.6 C 73 18 12/31/21 21:19 135/76 12/31/21 20:12 36.5 C 92 H 18 169/100 H 12/31/21 19:10 81 17 130/91 12/31/21 19:09 83 18 130/91 12/31/21 15:52 70 18 124/80 12/31/21 14:00 18 12/31/21 12:57 82 16 128/88 12/31/21 11:50 18 BP Pulse Ox 01/01/22 11:36 95 01/01/22 11:20 96 01/01/22 11:10 99 01/01/22 11:00 96 01/01/22 10:50 98 01/01/22 10:40 97 01/01/22 10:31 98 01/01/22 08:00 143/92 H 96 01/01/22 07:38 144/89 H 94 01/01/22 00:06 124/75 94 12/31/21 21:19 12/31/21 20:12 95 12/31/21 19:10 94 12/31/21 19:09 94 12/31/21 15:52 94 12/31/21 14:00 94 12/31/21 12:57 93 12/31/21 11:50 97 Pain Intensity Right Leg: Pain Intensity: 3 Back: Pain Intensity: 3 Transfer of Care Handoff Completed per policy Notes Mental Status: alert / awake / arousable Patient Amnestic to Procedure: Yes Nausea / Vomiting: adequately controlled Pain: adequately controlled Airway Patency, RR, SpO2: stable & adequate BP & HR: stable & adequate Hydration State: stable & adequate Anesthetic Complications: no major complications apparent and Pt Satisfied with anesthetic care
--- NOTE | 2022-01-01 14:47 | Hospitalist Progress Note ---
Date of Service January 01, 2022 Assessment & Plan (1) Spinal stenosis, lumbar region with neurogenic claudication: (2) HTN (hypertension): (3) Post-surgical hypothyroidism: (4) Asthma: (5) BPH (benign prostatic hyperplasia): (6) GERD (gastroesophageal reflux disease): Plan: This is a 61-year-old male who has significant past medical history of HTN, postsurgical hypothyroidism, asthma, BPH, GERD, nasal polyps who presents to ED secondary to worsening back, leg pain and difficulty with urination. Lumbar Spinal Stenosis with neurogenic claudication POD#0 s/p lumbar decompression with bilateral medial facetectomies and foraminotomies L3-L4, L4-5 and L5-S1 and posterior spinal fusion L4-L5 L5-S1 by Dr. Rose Per ortho for pain control, wound care, anticoagulation and activities Monitor H&H (pre-op hgb 15.1, EBL 200ml) Continue incentive spirometry, PT/OT when appropriate HTN Will hold HCTZ until re assessed in AM Post surgical hypothyroidism continue Synthyroid BPH Continue finasteride Gerd Continue Nexium, controlled DVT ppx: SCD/TEDS, per primary PCP: Rufus Kirkland FULL CODE Dispo: med/surg Thank you for this consultation. We will follow the patient with you during their hospital stay. You can reach a member of the [facility] Hospitalist Team 31/05 via hospitalist role on tiger text Admission and Anticipated Discharge Date Admission Date: December 31, 2021 Supervising Physician Co-Signing Physician Notes 61-year-old male with PMH of HTN, postsurgical hypothyroidism, asthma, BPH, GERD, nasal polyps presented to the ED 12/31 secondary to worsening back/leg pain and difficulty with urination. Patient underwent lumbar decompression 01/01 for lumbar spinal stenosis with neurogenic claudication. Patient was seen after the operation. Patient doing well, on room air, sitting up in chair, eating his dinner, clean dressing over the lower back noted without soakage, urinary catheter in situ with yellow urine collection noted, heart lungs and abdomen examination WNL. I have seen and examined the patient and have discussed the case with the provider above. I agree with the assessment and plan and exam as stated. Subjective Patient seen and examined following surgery this morning. Sleepy but awakens to answer questions appropriately. Some surgical site discomfort. No numbness or pain in BLE. No F/C, CP, SOB, N/V, abdominal pain, diarrhea or constipation. Johnson catheter in place. Review of Systems Review of Systems: At least ten systems reviewed and negative except as noted in the HPI. Physical Exam Physical Exam: Gen: WD/WN, NAD, lying in bed, A&Ox3 HEENT: Normocephalic, atraumatic, conjunctivae moist, sclerae anicteric, mucous membranes moist Lung: Clear to Auscultation bilaterally, no wheezes/rales/rhonchi Heart: Regular rate, regular rhythm, no murmurs, rubs, or gallops Abdomen: Soft, NT, ND +BS x 4 : Johnson in place Extremities: Spinal dressing c/d/i. + SCDs, no edema Skin: Warm, no rash Results & Data Results & Data ([facility]) Vital Signs (Past 12 Hours) Vital Signs Temp Pulse Pulse Resp BP BP Pulse Ox 01/01/22 14:30 36.8 C 81 16 115/76 93 01/01/22 13:27 36.4 C L 81 16 114/74 93 01/01/22 12:30 36.5 C 81 16 113/76 93 01/01/22 12:02 36.9 C 87 16 114/75 95 01/01/22 11:36 36.4 C L 63 16 117/75 95 01/01/22 11:20 77 16 125/78 96 01/01/22 11:10 36.1 C L 72 16 117/75 99 01/01/22 11:00 70 11 L 133/87 96 01/01/22 10:50 73 12 128/78 98 01/01/22 10:40 77 12 146/84 H 97 01/01/22 10:31 36 C L 86 12 144/89 H 98 01/01/22 08:00 36.6 C 81 18 143/92 H 96 01/01/22 07:38 36.5 C 65 16 144/89 H 94
[2022-01-01] MEDS: KETOROLAC TROMETHAMINE 15 MG/ML VIAL IV SCH ×2 (14:55→19:51)
[2022-01-01] MEDS: CLINDAMYCIN 600 MG in DEXTROSE 5% 50 ML IV SCH ×2 (16:34→23:22)
[2022-01-01] MEDS: DOCUSATE SODIUM/SENNA 50/8.6MG TAB PO SCH (19:52)
[2022-01-02] MEDS: KETOROLAC TROMETHAMINE 15 MG/ML VIAL IV SCH ×2 (01:18→07:47)
[2022-01-02] MEDS: LACTATED RINGER'S 1,000 ML IV SCH ×2 (01:19→07:45)
[2022-01-02] MEDS: traMADol HCL 50 MG TABLET PO PRN ×2 (01:22→05:05)
[2022-01-02] MEDS: LEVOTHYROXINE SODIUM 175 MCG TABLET PO SCH (05:06)
[2022-01-02] MEDS: POLYETHYLENE (MIRALAX) 17 GM PACK PO SCH ×4 (05:06→22:05)
[2022-01-02 07:02] LABS: Basophils # (auto) 0.01 K/uL (0-0.2); Basophils % (auto) 0.1 %; Eosinophils # (auto) 0.04 K/uL (0-0.5); Eosinophils % (auto) 0.4 %; Hematocrit (blood only) 36.6 % (42-52); Hemoglobin 11.9 g/dL (14.0-18.0); Immature Granulocytes # (auto) 0.08 K/uL (0.00-0.02); Immature Granulocytes % (auto) 0.7 %; Mean Corpuscular Hemoglobin 28.9 pg (25-34); Mean Corpuscular Hgb Conc 32.5 g/dL (32-36); Mean Corpuscular Volume 88.8 fL (80-100); Monocytes # (auto) 0.96 K/uL (0.11-0.59); Monocytes % (auto) 8.5 %; Neutrophils # (auto) 8.39 K/uL (1.4-6.5); Neutrophils % (auto) 74.3 %; Platelet Count 215 K/uL (130-400); RDW Coefficient of Variation 15.4 % (11.5-14.5); RDW Standard Deviation 49.7 fL (36.4-46.3); Red Blood Count 4.12 M/uL (4.7-6.1); White Blood Count 11.28 K/uL (4.8-10.8)
[2022-01-02 07:19] LABS: BUN Creatinine Ratio 28.9 (10-20); Calcium 8.4 mg/dl (8.5-10.1); Creatinine Clr Calc Pharmacy 97.8 ml/min; Est GFR (African American) 115.7 ml/min; Est GFR (Non-African American) 99.9 ml/min; Potassium 3.9 mmol/L (3.5-5.1)
--- NOTE | 2022-01-02 09:10 | Orthopedic Progress Note ---
Date of Service January 02, 2022 Assessment & Plan (1) Spinal stenosis, lumbar region with neurogenic claudication: Plan: Patient is doing well postop day #1. We will continue mobilization efforts. We will continue with GI DVT prophylaxis as well as pain control. We will get him up with physical therapy today he is likely to be with us throughout the weekend. Admission and Anticipated Discharge Date Admission Date: December 31, 2021 Subjective Patient seen bedside in room 376. He is postop day 1 status post L4-S1 decompression and fusion. He is doing very well at this point he has minimal pain. He is not having any radicular complaints. He denies any other numbness, tingling, or paresthesias. Physical Exam Physical Exam: On exam he is alert and oriented. He appears comfortable. His abdomen soft nontender his calves are supple nontender. Strength and sensation are grossly intact his KG drain is in place and is holding suction Results & Data ([facility]) Vital Signs (Past 12 Hours) Vital Signs Temp Pulse Resp BP Pulse Ox 01/02/22 07:54 36.9 C 71 18 110/69 92 01/02/22 05:30 37 C 78 16 112/72 92 01/01/22 23:09 36.9 C 71 17 121/77 94
[2022-01-02] MEDS: FLUTICASONE/VILANTEROL 200/25MCG 14 PUFFS/INHALER INH SCH (09:20)
[2022-01-02] MEDS: FLUTICASONE PROPIONATE NA SPR 16 GM BTL NAE SCH (09:20)
[2022-01-02] MEDS: FINASTERIDE 5 MG TAB PO SCH (09:23)
[2022-01-02] MEDS: PANTOprazole 40 MG TAB PO SCH (09:23)
[2022-01-02] MEDS: GABAPENTIN 300 MG CAP PO SCH ×4 (09:23→21:14)
[2022-01-02] MEDS: dexAMETHasone 6 MG in SYRINGE 0 ML IV SCH (09:25)
--- NOTE | 2022-01-02 14:37 | Hospitalist Progress Note ---
Date of Service January 02, 2022 Assessment & Plan (1) Spinal stenosis, lumbar region with neurogenic claudication: (2) HTN (hypertension): (3) Post-surgical hypothyroidism: (4) Asthma: (5) BPH (benign prostatic hyperplasia): (6) GERD (gastroesophageal reflux disease): Plan: This is a 61-year-old male who has significant past medical history of HTN, postsurgical hypothyroidism, asthma, BPH, GERD, nasal polyps who presents to ED secondary to worsening back, leg pain and difficulty with urination. Lumbar Spinal Stenosis with neurogenic claudication POD#1 s/p lumbar decompression with bilateral medial facetectomies and foraminotomies L3-L4, L4-5 and L5-S1 and posterior spinal fusion L4-L5 L5-S1 by Dr. Rose Per ortho for pain control, wound care, anticoagulation and activities Continue incentive spirometry, PT/OT when appropriate Acute post-op blood loss anemia Hgb 11.9 today (from pre-op hgb 15.1, EBL 200ml) Vital signs stable, asymptomatic Continue to monitor with daily BMP HTN Will continue to hold HCTZ - reassess in AM Post surgical hypothyroidism continue Synthroid BPH Continue finasteride Gerd Continue Nexium, controlled DVT ppx: SCD/TEDS, per primary PCP: Rufus Kirkland FULL CODE Dispo: med/surg Thank you for this consultation. We will follow the patient with you during their hospital stay. You can reach a member of the [facility] Hospitalist Team 31/05 via hospitalist role on tiger text Admission and Anticipated Discharge Date Admission Date: December 31, 2021 Supervising Physician Co-Signing Physician Notes 61-year-old male with PMH of HTN, postsurgical hypothyroidism, asthma, BPH, GERD, nasal polyps presented to the ED 12/31 secondary to worsening back/leg pain and difficulty with urination. Patient underwent lumbar decompression 01/01 for lumbar spinal stenosis with neurogenic claudication. Postoperatively, patient is doing fine, worked well with physical therapy, eating okay, moving gas, urinary catheter in situ with light yellow urine collection noted, KG drain in situ with serosanguineous collection noted, pain under control, patient moving gas but has not moved bowel. Continue to follow. Patient doing well, on room air, sitting up in chair, eating his dinner, clean dressing over the lower back noted without soakage, urinary catheter in situ with yellow urine collection noted, heart lungs and abdomen examination WNL. PT/OT, pain management, DVT prophylaxis per primary team. Acute blood loss anemia noted postoperatively, will continue to monitor. I have seen and examined the patient and have discussed the case with the provider above. I agree with the assessment and plan and exam as stated. Subjective Patient seen and examined in 376-1. Resting comfortably and feeling better today. Some surgical site discomfort following ambulating in the halls with PT. No numbness or pain in BLE. No F/C, CP, SOB, N/V, abdominal pain. Johnson catheter in place.Passing flatus but no post-op bowel movement. Review of Systems Review of Systems: At least ten systems reviewed and negative except as noted in the HPI. Physical Exam Physical Exam: Gen: WD/WN, NAD, sitting in bedside chair, A&Ox3 HEENT: Normocephalic, atraumatic, conjunctivae moist, sclerae anicteric, mucous membranes moist Lung: Clear to Auscultation bilaterally, no wheezes/rales/rhonchi Heart: Regular rate, regular rhythm, no murmurs, rubs, or gallops Abdomen: Soft, NT, ND +BS x 4 : Johnson in place Extremities: Spinal dressing c/d/i, KG drain visualized. No edema Skin: Warm, no rash Results & Data Results & Data ([facility]) Vital Signs (Past 12 Hours) Vital Signs Temp Pulse Resp BP Pulse Ox 01/02/22 10:57 36.3 C L 84 20 100/66 100 01/02/22 07:54 36.9 C 71 18 110/69 92 01/02/22 05:30 37 C 78 16 112/72 92 Laboratory Results Short CBC 01/02/22 Range/Units 06:25 WBC 11.28 H (4.8-10.8) K/uL Hgb 11.9 L D (14.0-18.0) g/dL Hct 36.6 L (42-52) % Plt Count 215 (130-400) K/uL BMP 01/02/22 06:25 Sodium 137 Potassium 3.9 Chloride 105 Carbon Dioxide 26 BUN 22 Creatinine 0.76 Glucose 87 Calcium 8.4 L Diagnostic Findings Chest X-Ray 12/31/21 14:05 TWO VIEW CHEST CLINICAL HISTORY: Preoperative examination. Reported history of asthma. FINDINGS: PA and lateral chest radiographs are compared to study dated 12/11/2013. The cardiomediastinal silhouette is unremarkable. There is bibasilar scarring/atelectasis. The lungs and pleural spaces are otherwise clear. There is no pneumothorax. The skeletal structures appear osteopenic. Degenerative changes noted throughout the thoracic spine. The bony thorax appears intact. IMPRESSION: No active disease in the chest. ACT 112: Negative or not required by law. Electronically signed by: Juliocesar Arthur M.D. 12/31/2021 4:19 PM Lumbar Spine X-Ray 01/01/22 00:00 INTRAOPERATIVE RADIOGRAPHS CLINICAL HISTORY: Lumbar spinal fusion. Fluoroscopy time: 23 seconds. FINDINGS: 2 spot fluoroscopic views of the lumbar spine are presented. There has been discectomy at L4-L5 and L5-S1 with laminectomy and posterior fusion at L4- S1. Interpedicular screws are in place. The orthopedic hardware appears intact. IMPRESSION: Intraoperative images from L4-S1 spinal fusion as above. Electronically signed by: Juliocesar Arthur M.D. 01/01/2022 11:39 AM
[2022-01-02] MEDS: DOCUSATE SODIUM/SENNA 50/8.6MG TAB PO SCH (21:14)
[2022-01-03] MEDS: traMADol HCL 50 MG TABLET PO PRN (03:31)
[2022-01-03] MEDS: POLYETHYLENE (MIRALAX) 17 GM PACK PO SCH ×2 (05:46→12:11)
[2022-01-03] MEDS: LEVOTHYROXINE SODIUM 175 MCG TABLET PO SCH (05:46)
[2022-01-03] MEDS: FLUTICASONE PROPIONATE NA SPR 16 GM BTL NAE SCH (08:13)
[2022-01-03] MEDS: PANTOprazole 40 MG TAB PO SCH (08:13)
[2022-01-03] MEDS: FLUTICASONE/VILANTEROL 200/25MCG 14 PUFFS/INHALER INH SCH (08:13)
[2022-01-03] MEDS: dexAMETHasone 6 MG in SYRINGE 0 ML IV SCH (08:14)
[2022-01-03] MEDS: FINASTERIDE 5 MG TAB PO SCH (08:14)
[2022-01-03] MEDS: GABAPENTIN 300 MG CAP PO SCH ×2 (08:14→12:12)
--- NOTE | 2022-01-03 10:39 | Discharge Summary ---
Date of Service January 03, 2022 Admission HPI Per Admitting Provider This is a 61-year-old male that presents with severe right leg radiculopathy. He states symptoms have been present for several months with a significant decline over the past few weeks. He describes pain in the right buttock posterior thigh extending into the dorsum of his foot. He is now relegated to using crutches to ambulate as he is unable to weight-bear secondary to weakness. He has tried epidural injections without relief. Left lower extremities relatively asymptomatic. He denies any specific trauma fall or event. Principal Diagnosis Lumbar spinal stenosis with herniated was pulposis and spondylolisthesis Discharge Data Allergies Allergy/AdvReac Type Severity Reaction Status Date / Time doxycycline Allergy Severe Hives Verified 12/31/21 15:55 Penicillins Allergy Severe RASH Verified 12/31/21 15:55 Quinolones Allergy Severe SWELLING, Verified 12/31/21 15:55 RASH Consultations 12/31/21 13:13 ED Decision to Admit Stat 12/31/21 14:01 Consult Internal Medicine Routine Procedures Performed Operation Date: 01/01/22 07:00 Actual Procedures p Lumbar decompression Fusion L4-L5 & L5-S1(Bilateral) - Antonio Rose DO Ordered Studies 01/01/22 [place] lumbar spine 2-3V Routine Hospital Course (1) Lumbar disc herniation with radiculopathy: Patient was admitted through the ER with severe back pain right leg pain and progressive neuro deficit. He underwent surgery the following day tolerates well stable orthopedic floor. Postop day 1 is up and ambulating leg pain and strength steadily improving. Aggressive postop day #2. Extra strength testing. Pain well controlled. KG drain decreasing probably. Subsequent discharge home. Discharge orders instructions from chart for further review. Total Time Total Time Spent Total Time Spent (In Minutes): 20 minutes Discharge Plan Discharge Items Patient Disposition: Home - Self-Care Reason For Visit: LUMBAR DISC HERNIATION WITH RADICULOPATHY Discharge Diagnosis: Lumbar disc herniation with radiculopathy and spondylolisthesis Activity: As commented below Non-emergency contact: Primary Care Provider Call non-emergency contact if: you have any medication questions Follow-up/Referrals: Rufus Kirkland MD [Primary Care Provider] - Diet: Regular Addtl Attending Provider Instructions: ACTIVITY RECOMMENDATIONS: SELF CARE INSTRUCTIONS AFTER THORACIC/LUMBAR FUSIONS 1. You may walk to your tolerance. It is good exercise for your legs and back. Expect some back and intermittent leg aches and pains. 2. You may perform "counter-top" level activities (make a sandwich, wilfrido with a project, etc.). 3. No bending or lifting of more than 10 pounds or back twisting of any nature (roll like a log when turning in bed). 4. You may ride in a car for 20-30 minutes at a time. No driving until after your first visit with your doctor. 5. Frequent changes of position and restricting sitting to 30 minutes at a time will help limit the amount of back spasms and stiffness you may experience. 6. You may discontinue the use of ambulatory aids (cane, crutches, etc.) once your strength and confidence allow. 7. You may diesel maintenance technician the shower and let water strike your incision when you arrive home at least once daily. Do not take a tub bath, sit in a hot tub or go into a swimming pool until after your first recheck in the office. SPECIAL CARE INSTRUCTIONS: VERY IMPORTANT TO READ AND REVIEW A. Your surgical incision has been closed with a cosmetic suture under the skin that will dissolve in about 6 weeks. In 14 days, you can use a pair of clean scissors and cut the suture that is left outside of the skin at the ends of your incision. 1. The small skin tapes can be removed 7 days after surgery if they have not fallen off by that point. 2. You may keep the wound open to air as much as possible to promote healing after post-op day number 5 unless told otherwise by your doctor. 3. If you think the wound looks like it is becoming infected (redness or worsening drainage) and/or you are experiencing fever, chill or worsening back pain and muscle spasms, contact the office so that we may evaluate you as soon as possible. B. Complications are uncommon, but please contact us if you have any signs or symptoms of: 1. wound infection (fever higher than 102.5 degrees F, redness, separation of wound, drainage, or increasing pain from the incision) 2. blood clots in legs (pain, swelling, redness and warmth in legs) 3. urinary tract infection (fever higher than 102.5 degrees F, burning upon urination or increased frequency of urination) 4. nerve problems (inability to walk on your toes or heels, numbness, loss of bowel or bladder control) 5. any other symptoms that concern you C. Please call the office at if you have any concerns or questions about your operation or recovery. D. No smoking! Smoking drastically decreases the chance of a solid fusion. E. Do not take any anti-inflammatory medications (Indocin, Advil, Motrin, Aspirin, Naprosyn, etc.) as these may inhibit the chance of a solid fusion. Tyl enol is okay to take for pain. MANAGING PAIN AFTER SPINAL SURGERY 1. Narcotic medication is intended for short-term use and will be provided for surgical pain. Surgical pain usually lasts for a period of 4-6 weeks. Narcotic medication includes Percocet, Vicodin, Darvocet, Tylenol #3 or Lortab. 2. Longer-term pain is more appropriately treated with non-narcotic medication such as Tylenol ES. 3. Muscle spasm is not appropriately treated with narcotics. Muscle relaxers such as Soma, Flexeril or Skelaxin can be used along with Tylenol ES. 4. Remember that we all live with some "aches and pains". This is not unusual or uncommon after an injury or as we get older. a. Back pain is expected and may include muscle spasms for 4 to 6 weeks after surgery. The pain should gradually improve. If the pain worsens for no apparent reason, please contact the office. b. Intermittent leg pain may also be experienced and should not be concerned about unless it worsens for no apparent reason. If so, please contact the office. 5. We will provide appropriate medication within the normal guidelines of their prescribed use. We will also be very cautious and aware of potential abuse and extended duration of patients' medication needs. a. Pain medications are for your comfort and to assist with sleep and rest so that the tissue can heal. They are not provided in order to return to normal activity and should not be used through the day. To do so or worsening pain at night can result from ongoing tissue damage and development of tolerance to the prescribed medicine. 6. Please allow 2-3 days to process refills. Prescriptions will not be mailed but must be picked up at the office. FOLLOW UP VISIT: Keep your scheduled follow-up appointment. Any questions, please call the office at . Pending Studies at Discharge: No Stand-Alone Forms: [facility], Smoking Cessation Medications and DC Order Prescriptions: New tramadol 50 mg tablet 50 mg PO Q6H PRN (Reason: pain, moderate) Qty: 30 RF: 0 oxycodone 5 mg tablet 5 mg PO Q6H PRN (Reason: pain, severe) Qty: 30 RF: 0 Continued levothyroxine [Synthroid] 175 mcg tablet 175 mcg PO DAILY RF: 0 mometasone 50 mcg/actuation spray,non-aerosol 2 spray INTRANASAL DAILY RF: 0 hydrochlorothiazide 25 mg tablet 25 mg PO DAILY RF: 0 finasteride 5 mg tablet 5 mg PO DAILY RF: 0 esomeprazole magnesium [Nexium 24HR] 20 mg capsule,delayed release(DR/EC) 20 mg PO DAILY RF: 0 Dulera 200-5 mcg/actuation HFA aerosol inhaler 2 inh INHALATION BID RF: 0 Dupixent Pen 300 mg/2 mL pen injector 300 mg SUBCUT Q14D RF: 0 gabapentin 300 mg Capsule 300 mg PO QID RF: 0 Discharge Orders: Discharge Order (Routine); Ordered 01/03/22 Ordered By: Antonio Rose Admission Data Admit Date/Time: 12/31/21 12:16 Attending Provider: Antonio Rose Admit Provider: Antonio Rose Primary Care Provider: Rufus Kirkland Other Providers: Chiquita Wallace ; Debbie Hernandez ; Antonio Rose ; Ximena Roberts.
[2022-01-03 11:10] LABS: Hematocrit (blood only) 42.2 % (42-52); Hemoglobin 13.8 g/dL (14.0-18.0); Mean Corpuscular Hemoglobin 29.2 pg (25-34); Mean Corpuscular Hgb Conc 32.7 g/dL (32-36); Mean Corpuscular Volume 89.2 fL (80-100); Mean Platelet Volume 10.9 fL (7.4-10.4); Platelet Count 264 K/uL (130-400); RDW Coefficient of Variation 15.6 % (11.5-14.5); RDW Standard Deviation 50.8 fL (36.4-46.3); Red Blood Count 4.73 M/uL (4.7-6.1); White Blood Count 16.84 K/uL (4.8-10.8)
[2022-01-03 11:32] LABS: BUN Creatinine Ratio 24.7 (10-20); Calcium 8.9 mg/dl (8.5-10.1); Est GFR (African American) 103.8 ml/min; Est GFR (Non-African American) 89.5 ml/min; Potassium 3.9 mmol/L (3.5-5.1)
--- NOTE | 2022-01-03 16:38 | Hospitalist Progress Note ---
Date of Service January 03, 2022 Assessment & Plan (1) Spinal stenosis, lumbar region with neurogenic claudication: (2) HTN (hypertension): (3) Post-surgical hypothyroidism: (4) Asthma: (5) BPH (benign prostatic hyperplasia): (6) GERD (gastroesophageal reflux disease): Plan: This is a 61-year-old male who has significant past medical history of HTN, postsurgical hypothyroidism, asthma, BPH, GERD, nasal polyps who presents to ED secondary to worsening back, leg pain and difficulty with urination. H Lumbar Spinal Stenosis with neurogenic claudication POD#2 s/p lumbar decompression with bilateral medial facetectomies and foramino tomies L3-L4, L4-5 and L5-S1 and posterior spinal fusion L4-L5 L5-S1 by Dr. Rose Per ortho for pain control, wound care, anticoagulation and activities Continue incentive spirometry, PT/OT Pt doing better with PT after surgery. Acute post-op blood loss anemia Hgb 11.9 01/02 (from pre-op hgb 15.1, EBL 200ml) Vital signs stable, asymptomatic Continue to monitor labwise and clinically HTN Resume HCTZ when able. Post surgical hypothyroidism continue Synthroid BPH Continue finasteride Gerd Continue Nexium, controlled DVT ppx: SCD/TEDS, per primary PCP: Rufus Kirkland FULL CODE Dispo: med/surg Thank you for this consultation. We will follow the patient with you during their hospital stay. You can reach a member of the [facility] Hospitalist Team 31/05 via hospitalist role on tiger text Admission and Anticipated Discharge Date Admission Date: December 31, 2021 Subjective Patient seen and examined as a follow-up of status post lumbar decompression surgery for lumbar spinal stenosis with neurogenic claudication. Patient is POD #2. Patient was walking with the help of walker in the hallway, on room air, not in acute distress, on room air, reported pain under control, KG drain in situ with minimal serosanguineous collection noted. Patient reports moving gas and bowel. Patient reports eating okay. Patient reports pain under control. Patient denies any fever/headache/chills/chest pain/palpitation/other review of symptoms. Physical Exam Physical Exam: GENERAL: Alert and oriented x3. NAD, on RA. HEENT: No pallor, no icterus. Pupils equal, round and reactive to light. Oral mucosa moist. NECK: No JVD, no neck masses. HEART: S1 and S2 heard. Regular rate and rhythm. No murmur, no gallop. RESPIRATORY SYSTEM: Normal AP diameter. No accessory muscle use. No wheezing, no crackles. ABDOMEN: Soft, bowel sounds present, nontender, no distention. CENTRAL NERVOUS SYSTEM: No facial droop. Speech is clear. Obeys simple commands. Moves extremities. EXTREMITIES: No edema, no erythema seen. Low back with clean dressing without soakage noted. KG drain in situ with minimal serosanguineous collection noted. Results & Data Results & Data ([facility]) Vital Signs (Past 12 Hours) Vital Signs Temp Pulse Resp BP Pulse Ox 01/03/22 14:07 36.6 C 56 L 18 125/78 97 01/03/22 07:55 36.6 C 56 L 18 125/78 97
== END 2022-01-03 15:55 | disposition home or self-care (01) | DRG 454 ==
LOC: ED 09:00 → EDINP 12:16 → 3N 15:52